=== PATIENT | female | born 1950 | race Caucasian/White ===

== ENCOUNTER → 2018-11-20 | Outpatient (CLI) | payer BC, MEDICARE | END | disposition home or self-care (01) | LOC: M.RAD 12:53 | DX: M25.551 Pain in right hip (principal) ==

== ENCOUNTER → 2021-05-11 | Outpatient (CLI) | payer BC | LOC: M.LAB 12:21 | PROVIDERS: ATTEND Internal Medicine Gastroenterology | DX: Z01.812 Encounter for preprocedural laboratory examination (principal); Z20.822 Contact with and (suspected) exposure to COVID-19 ==

== ENCOUNTER 2021-05-12 17:11 | Inpatient (IN) | payer BC ==
[~2021-05-12] VITALS: Ht 162.6 cm; Wt 82.1 kg
[2021-05-12 17:15] VITALS: BP 168/89
[2021-05-12 18:41] LABS: HEMOGLOBIN 14.9 gm/dL (12.0-15.0); MCH 30.7 pg (26.0-34.0); MCHC 33.1 g/dL (28.0-37.0); MPV 8.7 fl. (7.2-11.1); NUCLEATED RBCS 0 /100WBC; PLATELET COUNT* 362 thou/uL (150-400); RBC 4.84 mil/uL (4.20-5.00); RDW-CV 14.6 % (10.5-14.5); WBC 13.1 thou/uL (4.0-11.0)
[2021-05-12 18:44] LABS: CALCIUM 8.8 mg/dL (8.5-10.1); CREATININE 0.8 mg/dL (0.6-1.3); POTASSIUM 3.5 mmol/L (3.5-5.1)
[2021-05-12 18:53] LABS: ALBUMIN 3.6 g/dL (3.4-5.0); TOTAL BILIRUBIN 0.5 mg/dL (<0.1-1.0); TOTAL PROTEIN 7.1 g/dL (6.4-8.2)
[2021-05-12 19:29] LABS: ABSOLUTE LYMPHOCYTES 1.2 thou/uL (0.8-5.3); ABSOLUTE MONOCYTES 0.5 thou/uL (0.0-1.2); ABSOLUTE NEUTROPHILS 11.4 thou/uL (1.6-8.1); PLATELET ESTIMATE ADEQUATE
[2021-05-12 21:14] VITALS: BP 130/74
[2021-05-13 04:31] VITALS: BP 141/74
[2021-05-13 08:30] VITALS: BP 136/61
[2021-05-13 12:25] VITALS: BP 139/76
[2021-05-13 16:45] VITALS: BP 143/44
[2021-05-13 18:15] VITALS: BP 143/44
[2021-05-13 20:00] VITALS: BP 123/69
[2021-05-14 01:50] VITALS: BP 129/71
[2021-05-14 09:26] VITALS: BP 133/69
[2021-05-14 18:46] LABS: ABSOLUTE EOSINOPHILS 0.1 thou/uL (0.0-0.7); ABSOLUTE MONOCYTES 0.7 thou/uL (0.0-1.2); ABSOLUTE NEUTROPHILS 7.1 thou/uL (1.6-8.1); BASOPHILS 0.5 %; HEMATOCRIT 40.1 % (37.0-47.0); HEMOGLOBIN 13.2 gm/dL (12.0-15.0); LYMPHOCYTES 11.3 %; MCH 30.6 pg (26.0-34.0); MCHC 32.8 g/dL (28.0-37.0); MCV 93.3 fL (80.0-100.0); MONOCYTES 7.7 %; MPV 8.2 fl. (7.2-11.1); NUCLEATED RBCS 0 /100WBC; PLATELET COUNT* 291 thou/uL (150-400); POLYS 79.5 %; RDW-CV 14.2 % (10.5-14.5); WBC 8.9 thou/uL (4.0-11.0)
[2021-05-14 18:55] LABS: ALBUMIN 2.8 g/dL (3.4-5.0); CALCIUM 8.1 mg/dL (8.5-10.1); CREATININE 0.7 mg/dL (0.6-1.3); TOTAL BILIRUBIN 0.6 mg/dL (<0.1-1.0); TOTAL PROTEIN 6.1 g/dL (6.4-8.2)
[2021-05-14 19:00] LABS: POTASSIUM 2.7 mmol/L (3.5-5.1)
[2021-05-14 19:49] LABS: CALCIUM 7.7 mg/dL (8.5-10.1); CREATININE 0.6 mg/dL (0.6-1.3)
[2021-05-14 19:52] LABS: MAGNESIUM 1.7 mg/dL (1.8-2.4); PHOSPHORUS* 2.1 mg/dL (2.5-4.9)
[2021-05-14 19:53] LABS: ESR (SEDRATE) 30 mm/hr (0-30)
[2021-05-14 20:00] VITALS: BP 132/72
[2021-05-15 02:40] VITALS: BP 158/74
[2021-05-15 04:45] LABS: ABSOLUTE LYMPHOCYTES 0.7 thou/uL (0.8-5.3); ABSOLUTE MONOCYTES 0.9 thou/uL (0.0-1.2); HEMOGLOBIN 12.3 gm/dL (12.0-15.0); LYMPHOCYTES 8.1 %; MONOCYTES 10.5 %; NUCLEATED RBCS 0 /100WBC; PLATELET COUNT* 281 thou/uL (150-400)
[2021-05-15 04:47] LABS: ABSOLUTE EOSINOPHILS 0.1 thou/uL (0.0-0.7); ABSOLUTE NEUTROPHILS 7.1 thou/uL (1.6-8.1); BASOPHILS 0.2 %; EOSINOPHILS 1.5 %; HEMATOCRIT 37.1 % (37.0-47.0); MCHC 33.1 g/dL (28.0-37.0); MCV 93.6 fL (80.0-100.0); MPV 8.2 fl. (7.2-11.1); POLYS 79.7 %; RBC 3.96 mil/uL (4.20-5.00); WBC 8.9 thou/uL (4.0-11.0)
[2021-05-15 05:00] LABS: CALCIUM 7.7 mg/dL (8.5-10.1); CREATININE 0.6 mg/dL (0.6-1.3); POTASSIUM 3.5 mmol/L (3.5-5.1)
[2021-05-15 05:01] LABS: MAGNESIUM 1.7 mg/dL (1.8-2.4); POTASSIUM 3.4 mmol/L (3.5-5.1)
[2021-05-15 08:00] VITALS: BP 192/103
[2021-05-15 08:59] VITALS: BP 158/74
--- NOTE | 2021-05-15 10:05 | CON ---
[address] [address] CONSULTATION Name: DELVIN ESCOBEDO Room: [address] IN .R.#: [id number] Admission: 05/13/21 Attend Phys: Eric Merida Discharge: Date of : 46 Report #: [id number] THIS REPORT FOR: cc: Shon Ellis,Jez Batista DO ~ cc: Shon Ellis DO DATE OF CONSULTATION: 05/13/2021 REFERRING PHYSICIAN: Shon Ellis DO REASON FOR CONSULTATION: Diverticulitis. IMPRESSION: 1. Acute sigmoid diverticulitis with evidence of a small pericolonic abscess. 2. History of previous diverticulitis with microperforation in late 02/2021, at [facility]. 3. Status post colonoscopy on 05/12, possibly contributing to #1 as the patient had a very tortuous and redundant sigmoid colon. The proximal and distal extents of her diverticular disease within the left colon were tattooed for surgical purposes in case she had recurrent bouts of diverticulitis or a case of complicated diverticulitis requiring placement of a percutaneous drain. 4. Nausea and abdominal pain secondary to #1. RECOMMENDATIONS: 1. Agree with the patient being admitted to the hospital for IV antibiotics, antiemetics and peripheral analgesics. 2. Due to the patient's underlying history of anxiety with nausea, she may benefit from the use of Phenergan and possible Ativan to help with some of her discomfort and nausea. 3. I am not certain that the abscess is large enough for her to have a drain placed, but we will await information regarding the same from Interventional Radiology. 4. No issues to begin the patient on ice chips for now and slowly advance her diet as tolerated, starting tomorrow. 5. The patient would like to hold off on surgical intervention, if at all possible, especially if it would involve a temporary colostomy. She would, however, be agreeable to elective resection once this bout of sigmoid diverticulitis should resolve. 6. I suspect the patient will need to be here for good 5 to 7 days. I have discussed the plans with the patient and she is agreeable to same. HISTORY OF PRESENT ILLNESS: The patient is a pleasant 70-year-old white female who underwent a relatively uneventful colonoscopy the [place] [address] CONSULTATION Name: DELVIN ESCOBEDO Room: [address] IN [facility]#: [id number] Admission: 05/13/21 Attend Phys: Eric Merida Discharge: Date of : 46 Report #: [id number] followup of a bout of diverticulitis, which she had in 02/2021 at [facility]. She was hospitalized for 4-5 days and discharged to home on antibiotics and did relatively well. She then came in for an elective colonoscopy to evaluate the status of her colon and this was subsequently performed on 05/12. The patient had a relatively redundant and tortuous colon, making her colonoscopy difficult and this may have contributed to some of her issues that she had to come to the Emergency Room. When she contacted me late on 05/12 with complaints of lower abdominal pain, I recommended that she come to the hospital for emergent evaluation and contact the ER doctor, Dr. Rhys Ibarra, regarding the same and asked that she be evaluated and treated for the same. She is now here for the same. She is currently uncomfortable with a lot of lower abdominal pain. She denied any fevers or chills, but she has had some nausea and dry heaving. She has not had any bleeding. ALLERGIES: HYDROCODONE AND OXYCODONE. MEDICATIONS AT HOME: Not listed. PAST MEDICAL HISTORY: Previous hysterectomy, kidney stones. She has had history of migraines in the past and also history of diverticulitis as mentioned above. She had a history of colon polyps. The patient has a history of acid reflux, which she underwent the LINX procedure with hiatal hernia repair. She also had a previous cholecystectomy as well. SOCIAL HISTORY: The patient does not smoke or drink. FAMILY HISTORY: Remarkable for diverticular disease in her mother, but never had surgery. PHYSICAL EXAMINATION: GENERAL: Revealed a non-ill appearing 70-year-old white female who is in some distress secondary to abdominal pain. CARDIOPULMONARY: Revealed a regular rate and rhythm. LUNGS: Clear. ABDOMEN: Soft. It is diffusely tender. No rebound or guarding noted. LABORATORY TESTS: From admission revealed a white count of 13.1, hemoglobin 14.9, platelet count 362,000, MCV is 93.0 and RDW is 14.6. Her complete metabolic panel reveals sodium of 140, potassium of 3.5, chloride 104, bicarbonate 25, BUN is 11, creatinine is 0.8, total bilirubin is 0.5, alkaline phosphatase is 125, AST is 40, ALT is 44, and albumin is 3.6. [place] [address] CONSULTATION Name: DELVIN ESCOBEDO Room: [address] IN [place]#: [id number] Admission: 05/13/21 Attend Phys: Eric Merida Discharge: Date of : 46 Report #: [id number] scan of the abdomen and pelvis revealed ototstgz-uk-nsssnh acute phlegmonous inflammation in the mid sigmoid colon suggestive of acute diverticulitis. There is also the abscess, which has actually been demonstrating some rim enhancement and central pelvic mesentery measuring 3.3 x 1.6 cm x 4.1 in oblique craniocaudal diameter. There was moderate mucosal edema of the sigmoid colon. No free air was noted. DISCUSSION: At the present time, the patient has severe pancreatitis with evidence of a pancreatic pseudocyst with severe diverticulitis with evidence of a pericolonic diverticular abscess. This is likely related to a previous bout of diverticulitis. We will continue with IV antibiotics in the form of Cipro and Flagyl as well as pain medications and follow her expectantly. Surgical consultation has also been performed by Dr. Mark Chang, who will follow her as well. Interventional Radiology has been consulted as well. <ELECTRONICALLY SIGNED> By: Jez Hale DO 05/15/21 1005 1126 [id number] Hale DO /nt
[2021-05-15 15:43] VITALS: BP 114/69
[2021-05-15 20:30] VITALS: BP 167/98
[2021-05-15 20:54] LABS: MAGNESIUM 2.3 mg/dL (1.8-2.4); POTASSIUM 3.5 mmol/L (3.5-5.1)
[2021-05-16] VITALS: BP 182/80
[2021-05-16 08:00] VITALS: BP 180/94
[2021-05-16] MEDS ORDERED: METOPROLOL SUC100 MG PO (09:40)
[2021-05-16] MEDS ORDERED: AZELASTINE205.5 MCG/ NARES (09:42)
[2021-05-16] MEDS ORDERED: ATORVASTATIN CA10 MG PO (09:44)
[2021-05-16] MEDS ORDERED: NEURONTIN 300M300 M2 PO (09:49)
[2021-05-16] MEDS ORDERED: METOCLOPRAMIDE 55 M1 PO (09:52)
[2021-05-16] MEDS ORDERED: ACYCLOVIR 200200 MG PO (10:11)
[2021-05-16] MEDS ORDERED: LIPITOR10 MG PO (10:14)
[2021-05-16] MEDS ORDERED: AZELASTINE205.5 MCG/ NASAL (10:16)
[2021-05-16] MEDS ORDERED: FLEXERIL PO (10:19)
[2021-05-16] MEDS ORDERED: IMITREX 25 MG T25 M1 PO (10:20)
[2021-05-16] MEDS ORDERED: MACRODANTIN50 M1 PO (10:21)
[2021-05-16] MEDS ORDERED: PYRIDIUM200 MG PO (10:23)
[2021-05-16] MEDS ORDERED: TOLTERODINE TART4 MG PO (10:25)
[2021-05-16 10:50] VITALS: BP 149/70
[2021-05-16 16:12] VITALS: BP 148/96
[2021-05-16 20:30] VITALS: BP 122/74
[2021-05-17 00:12] VITALS: BP 125/68
[2021-05-17 16:28] VITALS: BP 156/79
[2021-05-17 22:00] VITALS: BP 150/81
[2021-05-18 00:36] VITALS: BP 147/78
[2021-05-18 05:09] LABS: ABSOLUTE BASOPHILS 0.1 thou/uL (0.0-0.2); ABSOLUTE EOSINOPHILS 0.2 thou/uL (0.0-0.7); ABSOLUTE LYMPHOCYTES 1.2 thou/uL (0.8-5.3); ABSOLUTE MONOCYTES 0.9 thou/uL (0.0-1.2); BASOPHILS 0.7 %; EOSINOPHILS 2.1 %; HEMOGLOBIN 12.7 gm/dL (12.0-15.0); LYMPHOCYTES 14.7 %; MCH 30.6 pg (26.0-34.0); MCHC 33.3 g/dL (28.0-37.0); MONOCYTES 10.9 %; MPV 8.1 fl. (7.2-11.1); NUCLEATED RBCS 0 /100WBC; PLATELET COUNT* 290 thou/uL (150-400); POLYS 71.6 %; RBC 4.14 mil/uL (4.20-5.00); RDW-CV 14.5 % (10.5-14.5); WBC 8.4 thou/uL (4.0-11.0)
[2021-05-18 05:17] LABS: CALCIUM 7.9 mg/dL (8.5-10.1); CREATININE 0.5 mg/dL (0.6-1.3); POTASSIUM 3.2 mmol/L (3.5-5.1)
[2021-05-18 07:46] VITALS: BP 151/86
[2021-05-18 16:00] VITALS: BP 147/95
[2021-05-18 20:00] VITALS: BP 127/79
[2021-05-19 00:12] VITALS: BP 142/83
[2021-05-19 08:00] VITALS: BP 147/78
[2021-05-19 14:28] LABS: ABSOLUTE EOSINOPHILS 0.2 thou/uL (0.0-0.7); ABSOLUTE LYMPHOCYTES 0.7 thou/uL (0.8-5.3); ABSOLUTE MONOCYTES 1.2 thou/uL (0.0-1.2); ABSOLUTE NEUTROPHILS 7.6 thou/uL (1.6-8.1); BASOPHILS 0.4 %; EOSINOPHILS 1.9 %; HEMATOCRIT 39.1 % (37.0-47.0); LYMPHOCYTES 7.1 %; MCH 30.5 pg (26.0-34.0); MCHC 33.3 g/dL (28.0-37.0); MCV 91.6 fL (80.0-100.0); MONOCYTES 12.4 %; NUCLEATED RBCS 0 /100WBC; PLATELET COUNT* 282 thou/uL (150-400); POLYS 78.2 %; RBC 4.27 mil/uL (4.20-5.00); RDW-CV 14.2 % (10.5-14.5); WBC 9.7 thou/uL (4.0-11.0)
[2021-05-19 16:50] VITALS: BP 151/82
[2021-05-19 20:12] VITALS: BP 158/87
[2021-05-20 01:18] VITALS: BP 157/81
[2021-05-20 08:00] VITALS: BP 158/83
[2021-05-20 16:00] VITALS: BP 130/65
[2021-05-20 20:21] VITALS: BP 157/80
[2021-05-21 01:59] VITALS: BP 160/77
[2021-05-21 08:00] VITALS: BP 157/59
[2021-05-21 13:09] VITALS: BP 162/81
[2021-05-21 19:36] VITALS: BP 158/83
[2021-05-22 00:01] VITALS: BP 142/79
[2021-05-22] MEDS ORDERED: METRONIDAZOLE500 M4 PO (09:12)
[2021-05-22] MEDS ORDERED: CIPROFLOXACIN500 M1 PO (09:12)
[2021-05-22 09:18] VITALS: BP 160/85
[2021-05-22 16:42] VITALS: BP 130/68
[2021-05-22 21:00] VITALS: BP 159/90
[2021-05-23] VITALS: BP 166/76
[2021-05-23 08:00] VITALS: BP 175/88
[2021-05-23 10:27] VITALS: BP 175/88
[2021-05-23 10:29] VITALS: BP 175/88
[2021-05-23 10:30] VITALS: BP 175/88
[2021-05-23] MEDS ORDERED: ALPRAZOLAM0.5 M2 PO (13:58)
[2021-05-23] MEDS ORDERED: ONDANSETRON HCL4 M2 PO (13:58)
[2021-05-23] MEDS ORDERED: TRAMADOL 50 MG50 MG PO (13:58)
== END 2021-05-23 14:40 | disposition home or self-care (01) | DRG 392 ==
LOC: M.ERS 17:11 → M.2W 05-13 00:23 → M.TBA-ER 05-13 00:23 → M.2W 05-13 18:42
PROVIDERS: Emergency Medicine; Internal Medicine; Internal Medicine Gastroenterology; ADMIT Internal Medicine; ATTEND Internal Medicine
DX: K57.20 Diverticulitis of large intestine with perforation and abscess without bleeding (principal); E44.1 Mild protein-calorie malnutrition; J98.11 Atelectasis; I16.1 Hypertensive emergency; N20.0 Calculus of kidney; R63.0 Anorexia; G43.909 Migraine, unspecified, not intractable, without status migrainosus; Z20.822 Contact with and (suspected) exposure to COVID-19; Z90.710 Acquired absence of both cervix and uterus; Z87.442 Personal history of urinary calculi; Z88.5 Allergy status to narcotic agent; Z91.018 Allergy to other foods; Z86.010 Personal history of colon polyps; Z90.49 Acquired absence of other specified parts of digestive tract; Z68.31 Body mass index [BMI] 31.0-31.9, adult

== ENCOUNTER 2021-05-30 18:38 | Inpatient (IN) | payer BC ==
[~2021-05-30] VITALS: Ht 162.6 cm; Wt 72.6 kg
[~2021-05-30 18:38] MED LIST: ACYCLOVIR 200200 MG PO; ALPRAZOLAM0.5 M2 PO; ATORVASTATIN CA10 MG PO; AZELASTINE205.5 MCG/ NARES; AZELASTINE205.5 MCG/ NASAL; CIPROFLOXACIN500 M1 PO; FLEXERIL PO; IMITREX 25 MG T25 M1 PO; LIPITOR10 MG PO; MACRODANTIN50 M1 PO; METOCLOPRAMIDE 55 M1 PO; METOPROLOL SUC100 MG PO; METRONIDAZOLE500 M4 PO; NEURONTIN 300M300 M2 PO; ONDANSETRON HCL4 M2 PO; PYRIDIUM200 MG PO; TOLTERODINE TART4 MG PO; TRAMADOL 50 MG50 MG PO
[2021-05-30 18:43] VITALS: BP 160/110
[2021-05-30] MEDS ORDERED: PHENERGAN 25 MG25 M1 PO (18:48)
[2021-05-30 22:16] LABS: ABSOLUTE LYMPHOCYTES 0.7 thou/uL (0.8-5.3); ABSOLUTE MONOCYTES 0.8 thou/uL (0.0-1.2); ABSOLUTE NEUTROPHILS 8.3 thou/uL (1.6-8.1); BASOPHILS 0.4 %; EOSINOPHILS 0.1 %; HEMATOCRIT 45.6 % (37.0-47.0); HEMOGLOBIN 15.3 gm/dL (12.0-15.0); LYMPHOCYTES 7.4 %; MCH 30.7 pg (26.0-34.0); MCHC 33.6 g/dL (28.0-37.0); MCV 91.5 fL (80.0-100.0); MONOCYTES 7.8 %; MPV 8.5 fl. (7.2-11.1); NUCLEATED RBCS 0 /100WBC; PLATELET COUNT* 392 thou/uL (150-400); POLYS 84.3 %; RBC 4.99 mil/uL (4.20-5.00); RDW-CV 13.9 % (10.5-14.5); WBC 9.8 thou/uL (4.0-11.0)
[2021-05-30 22:25] LABS: CALCIUM 8.5 mg/dL (8.5-10.1); CREATININE 0.6 mg/dL (0.6-1.3); POTASSIUM 3.3 mmol/L (3.5-5.1)
[2021-05-30 22:29] LABS: ALBUMIN 3.3 g/dL (3.4-5.0); MAGNESIUM 1.7 mg/dL (1.8-2.4); TOTAL BILIRUBIN 0.5 mg/dL (<0.1-1.0); TOTAL PROTEIN 6.5 g/dL (6.4-8.2)
[2021-05-30 22:39] LABS: URINE BLOOD TRACE (Negative); URINE CLARITY CLEAR; URINE COLOR YELLOW; URINE GLUCOSE-RANDOM NEGATIVE (Negative); URINE LEUKOCYTES-REFLEX NEGATIVE (Negative); URINE NITRITE-REFLEX NEGATIVE (Negative); URINE PROTEIN NEGATIVE (Negative); URINE SPECIFIC GRAVITY 1.025 (1.005-1.030); URINE UROBILINOGEN 0.2 E.U./dl (0.2-1.0)
[2021-05-30 22:40] LABS: URINE BILIRUBIN 1+ (Negative); URINE KETONES 3+ (Negative)
[2021-05-30 22:42] LABS: ACETEST (KETONE CONFIRMATORY) Large (Negative); ICTOTEST (BILI CONFIRMATORY) Negative (Negative)
[2021-05-31 05:14] VITALS: BP 146/85
--- NOTE | 2021-05-31 09:15 | EKG ---
[place] [address] ELECTROCARDIOGRAM REPORT Name: DELVIN ESCOBEDO Room: [place] [address] ADM IN [facility]#: [id number] Admission: 05/31/21 Attend Phys: Luh Jefferson, Discharge: Date of : 46 Date of Service: 05/30/212123 Report #: [id number] THIS REPORT FOR: //name// [facility] ED Test Date: 2021-05-30 Test Time: 21:24:55 Pat Name: DELVIN ESCOBEDO Department: Room: 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: : 1950 Requested By: Malvin Pal Order Number: [id number] MD: Edison Mccormack Measurements Intervals [place] Rate: 79 P: 56 WI: 139 QRS: 52 QRSD: 97 T: 93 QT: 417 QTc: 479 Interpretive Statements Sinus rhythm artifact noted Probable left atrial enlargement Nonspecific T abnormalities, lateral leads No previous ECG available for comparison Electronically Signed On 05-31-2021 9:01:22 MANAGER STRATEGY by Edison Mccormack [email or web address] <ELECTRONICALLY SIGNED> By: Edison Mccormack MD, FAC 05/31/21900 23 23 Edison Mccormack MD, [facility] /EPI
[2021-05-31 09:29] VITALS: BP 119/68
[2021-05-31 11:55] VITALS: BP 121/73
[2021-05-31 16:00] VITALS: BP 143/69
[2021-05-31 20:17] VITALS: BP 158/79
[2021-06-01] VITALS (8 sets, daily range): BP systolic 129–1685; BP diastolic 76–103
[2021-06-01 03:41] LABS: HEMATOCRIT 37.4 % (37.0-47.0); MCH 30.5 pg (26.0-34.0); MCHC 33.8 g/dL (28.0-37.0); MPV 8.4 fl. (7.2-11.1); RBC 4.15 mil/uL (4.20-5.00); WBC 9.5 thou/uL (4.0-11.0)
[2021-06-01 04:13] LABS: ALBUMIN 2.6 g/dL (3.4-5.0); CALCIUM 8.1 mg/dL (8.5-10.1); CREATININE 0.6 mg/dL (0.6-1.3); MAGNESIUM 1.6 mg/dL (1.8-2.4); POTASSIUM 3.1 mmol/L (3.5-5.1); TOTAL BILIRUBIN 0.7 mg/dL (<0.1-1.0); TOTAL PROTEIN 5.8 g/dL (6.4-8.2)
[2021-06-01 04:51] LABS: HEMOGLOBIN 12.6 gm/dL (12.0-15.0)
[2021-06-01 11:37] LABS: MAGNESIUM 1.7 mg/dL (1.8-2.4); POTASSIUM 3.8 mmol/L (3.5-5.1)
[2021-06-02 04:21] LABS: HEMOGLOBIN 12.6 gm/dL (12.0-15.0); MCH 30.2 pg (26.0-34.0); MCHC 33.2 g/dL (28.0-37.0); MCV 90.9 fL (80.0-100.0); MPV 8.7 fl. (7.2-11.1); RBC 4.19 mil/uL (4.20-5.00); RDW-CV 13.8 % (10.5-14.5); WBC 7.9 thou/uL (4.0-11.0)
[2021-06-02 04:42] LABS: ALBUMIN 2.5 g/dL (3.4-5.0); CALCIUM 8.2 mg/dL (8.5-10.1); CREATININE 0.6 mg/dL (0.6-1.3); MAGNESIUM 1.8 mg/dL (1.8-2.4); POTASSIUM 3.3 mmol/L (3.5-5.1); TOTAL BILIRUBIN 0.5 mg/dL (<0.1-1.0); TOTAL PROTEIN 5.7 g/dL (6.4-8.2)
[2021-06-02 08:00] VITALS: BP 118/71
[2021-06-02 12:40] VITALS: BP 151/87
[2021-06-02] MEDS ORDERED: AMOX TR-K CLV1 EAC4 PO (13:26)
[2021-06-02 16:24] VITALS: BP 151/87
--- NOTE | 2021-06-05 15:07 | PATH ---
[address] [address] PATHOLOGY RPT PROCEDURE Name: RAMYA ESCOBEDO Room: [address] IN .R.#: [id number] Admission: 05/31/21 Date of : 46 Discharge: 06/02/21 Report #: [id number] Path Case #: [id number] [facility] Accession Number: [id number] . 01 Material submitted: . gastrointestinal site - BIOPSY FOR GASTRITIS . 01 Clinical history: . EGD IN OR . 02 Diagnosis: Biopsy for gastritis: - Moderate nonspecific chronic active gastritis with focal intestinal metaplasia, negative for Helicobacter pylori organisms, granulomas and dysplasia. (VIC:[place]; 06/05/2021) . Special stain: H. pylori immuno QMS 06/05/2021 1159 Local . 02 Electronically signed: . Sanchez Angelo MD, Pathologist NPI- [id number] . 01 Gross description: . Received in formalin labeled "Marilu Ramya, biopsy for gastritis" are multiple fallon-brown soft tissue fragments measuring in aggregate 1.4 x 0.3 x 0.2 cm. The specimen is submitted entirely in A1. ([facility]; 06/03/2021) GZA/GZA 06/03/2021 1410 Local . 02 Pathologist provided ICD-10: K29.50 . 02 CPT . 061919, K96221 Specimen Comment: A courtesy copy of this report has been sent to [phone] Specimen Comment: [phone] Specimen Comment: Report sent to / DR CANDELARIA Performed at: [address] [place] [address], [place] [id number] MD Esdras Rock MD Phone: [phone] Performed at: 02 [facility] [address], [place], [place] [id number] MD Sanchez Angelo MD Phone: [phone]
== END 2021-06-02 17:38 | disposition home health service (06) | DRG 391 ==
LOC: M.ERS 18:38 → M.ORTHSURG 05-31 00:07 → M.TBA-ER 05-31 00:07 → M.ORTHSURG 05-31 12:06
PROVIDERS: Physician Assistant Medical; ADMIT Internal Medicine; ATTEND Internal Medicine
PROC: 3E0G8GC Introduction of Other Therapeutic Substance into Upper GI, Via Natural or Artificial Opening Endoscopic (ICD-10-PCS; principal; 2021-06-01)
PROC: 0D758ZZ Dilation of Esophagus, Via Natural or Artificial Opening Endoscopic (ICD-10-PCS; principal; 2021-06-01)
PROC: 0DB68ZX Excision of Stomach, Via Natural or Artificial Opening Endoscopic, Diagnostic (ICD-10-PCS; principal; 2021-06-01)
DX: K22.4 Dyskinesia of esophagus (principal); G92.8 Other toxic encephalopathy; K57.20 Diverticulitis of large intestine with perforation and abscess without bleeding; E44.1 Mild protein-calorie malnutrition; I10 Essential (primary) hypertension; G43.909 Migraine, unspecified, not intractable, without status migrainosus; K29.70 Gastritis, unspecified, without bleeding; T37.3X5A Adverse effect of other antiprotozoal drugs, initial encounter; E78.5 Hyperlipidemia, unspecified; G62.9 Polyneuropathy, unspecified; Z20.822 Contact with and (suspected) exposure to COVID-19; Z68.27 Body mass index [BMI] 27.0-27.9, adult; Z87.891 Personal history of nicotine dependence; Z90.710 Acquired absence of both cervix and uterus; Z87.442 Personal history of urinary calculi; Z79.899 Other long term (current) drug therapy; Z88.1 Allergy status to other antibiotic agents; Z91.040 Latex allergy status; Z88.5 Allergy status to narcotic agent; Z91.018 Allergy to other foods; Z91.09 Other allergy status, other than to drugs and biological substances; Y92.89 Other specified places as the place of occurrence of the external cause

== ENCOUNTER 2021-06-04 12:47 | Inpatient (IN) | payer BC ==
[~2021-06-04] VITALS: Ht 162.6 cm; Wt 72.6 kg
[~2021-06-04 12:47] MED LIST changes: +AMOX TR-K CLV1 EAC4 PO; +PHENERGAN 25 MG25 M1 PO
[2021-06-04 12:55] VITALS: BP 170/101
[2021-06-04 13:27] LABS: ABSOLUTE EOSINOPHILS 0.1 thou/uL (0.0-0.7); ABSOLUTE LYMPHOCYTES 0.7 thou/uL (0.8-5.3); ABSOLUTE MONOCYTES 0.9 thou/uL (0.0-1.2); ABSOLUTE NEUTROPHILS 7.1 thou/uL (1.6-8.1); BASOPHILS 0.5 %; EOSINOPHILS 1.3 %; HEMATOCRIT 48.2 % (37.0-47.0); LYMPHOCYTES 7.4 %; MCH 30.4 pg (26.0-34.0); MCHC 32.1 g/dL (28.0-37.0); MCV 94.8 fL (80.0-100.0); MONOCYTES 9.9 %; MPV 8.3 fl. (7.2-11.1); NUCLEATED RBCS 0 /100WBC; PLATELET COUNT* 363 thou/uL (150-400); POLYS 80.9 %; RBC 5.08 mil/uL (4.20-5.00); RDW-CV 14.1 % (10.5-14.5); WBC 8.8 thou/uL (4.0-11.0)
[2021-06-04 13:36] LABS: HEMOGLOBIN 15.5 gm/dL (12.0-15.0)
[2021-06-04 13:49] LABS: CALCIUM 9.9 mg/dL (8.5-10.1); CREATININE 0.6 mg/dL (0.6-1.3); POTASSIUM 3.4 mmol/L (3.5-5.1)
[2021-06-04 13:53] LABS: ALBUMIN 3.3 g/dL (3.4-5.0); TOTAL BILIRUBIN 0.4 mg/dL (<0.1-1.0); TOTAL PROTEIN 7.5 g/dL (6.4-8.2)
[2021-06-04 14:21] LABS: URINE BILIRUBIN NEGATIVE (Negative); URINE BLOOD TRACE (Negative); URINE CLARITY CLEAR; URINE COLOR YELLOW; URINE GLUCOSE-RANDOM NEGATIVE (Negative); URINE KETONES 1+ (Negative); URINE LEUKOCYTES-REFLEX NEGATIVE (Negative); URINE NITRITE-REFLEX NEGATIVE (Negative); URINE PROTEIN NEGATIVE (Negative); URINE UROBILINOGEN 0.2 E.U./dl (0.2-1.0)
[2021-06-04 16:49] VITALS: BP 141/93
[2021-06-04 18:00] VITALS: BP 136/84
[2021-06-04 20:00] VITALS: BP 163/89
[2021-06-05] VITALS: BP 157/83
[2021-06-05 05:35] LABS: ALBUMIN 3.1 g/dL (3.4-5.0); CALCIUM 8.8 mg/dL (8.5-10.1); CREATININE 0.7 mg/dL (0.6-1.3); TOTAL BILIRUBIN 0.5 mg/dL (<0.1-1.0); TOTAL PROTEIN 6.8 g/dL (6.4-8.2)
[2021-06-05 05:59] LABS: POTASSIUM 2.9 mmol/L (3.5-5.1)
[2021-06-05 09:14] VITALS: BP 167/91
--- NOTE | 2021-06-05 09:49 | EKG ---
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: ALEKSANDRA : 1950 Requested By: Elías Cr Order Number: [id number] MD: Edison Mccormack Measurements Intervals [place] Rate: 76 P: 46 W[place]: 136 QRS: 26 QRSD: 93 T: 75 QT: 392 QTc: 441 Interpretive Statements Sinus rhythm Left atrial enlargement Baseline wander in lead(s) V1 Compared to ECG 05/30/2021 21:24:55 no change Electronically Signed On 06-05-2021 9:48:50 SUPPLY CHAIN PLANNER by Edison Mccormack [email or web address] <ELECTRONICALLY SIGNED> By: Edison Mccormack MD, [facility] 06/05/21 0948 1254 1254 Edison Mccormack MD, [facility] /EPI
[2021-06-05 14:00] VITALS: BP 165/103
[2021-06-05 18:37] VITALS: BP 183/95
[2021-06-05 20:22] VITALS: BP 165/82
== END 2021-06-06 | disposition short-term general hospital (02) | DRG 391 ==
LOC: M.ERS 12:47 → M.TBA-ER 14:06 → M.2W 14:06
PROVIDERS: Family Medicine; ADMIT Internal Medicine; ATTEND Internal Medicine
DX: K57.20 Diverticulitis of large intestine with perforation and abscess without bleeding (principal); I26.99 Other pulmonary embolism without acute cor pulmonale; B37.89 Other sites of candidiasis; Z20.822 Contact with and (suspected) exposure to COVID-19; Z88.8 Allergy status to other drugs, medicaments and biological substances; Z90.710 Acquired absence of both cervix and uterus; Z79.899 Other long term (current) drug therapy; Z90.49 Acquired absence of other specified parts of digestive tract; I10 Essential (primary) hypertension; K22.2 Esophageal obstruction; K29.70 Gastritis, unspecified, without bleeding; G43.909 Migraine, unspecified, not intractable, without status migrainosus; K21.9 Gastro-esophageal reflux disease without esophagitis; Z87.442 Personal history of urinary calculi; E87.6 Hypokalemia; K31.9 Disease of stomach and duodenum, unspecified; K22.4 Dyskinesia of esophagus; R13.14 Dysphagia, pharyngoesophageal phase; K31.89 Other diseases of stomach and duodenum; R93.3 Abnormal findings on diagnostic imaging of other parts of digestive tract